=== PATIENT | female | born 2000 | race Caucasian/White ===

== ENCOUNTER 2019-03-09 14:33 | Emergency (ER) | payer OTHER ==
[~2019-03-09] VITALS: Ht 160 cm; Wt 90.7 kg
[~2019-03-09 14:33] MED LIST: IBUPROFEN 600600 M1 PO; NORCO 5-325 TA1 EACH PO; ZPAK PO
[2019-03-09 15:24] LABS: URINE BILIRUBIN NEGATIVE (Negative); URINE BLOOD 1+ (Negative); URINE CLARITY CLEAR; URINE COLOR YELLOW; URINE GLUCOSE-RANDOM* NEGATIVE (Negative); URINE KETONES NEGATIVE (Negative); URINE LEUKOCYTES-REFLEX TRACE (Negative); URINE NITRITE-REFLEX NEGATIVE (Negative); URINE PROTEIN (DIPSTICK) NEGATIVE (Negative); URINE SPECIFIC GRAVITY 1.025 (1.005-1.035); URINE UROBILINOGEN 0.2 E.U./dl (0.2-1.0)
[2019-03-09 15:35] LABS: BACTERIA-REFLEX 1-9 Few /HPF (None Seen); CRYSTALS None Seen /LPF (None Seen); HYALINE CASTS 0-3 Few /LPF (None Seen); MUCUS >6 Heavy strn/LPF (None Seen); SQUAMOUS >10 Many /LPF (0-3); URINE RBC 3-10 Few /HPF (0-2); URINE WBC-REFLEX 6-15 Few /HPF (0-5)
[2019-03-09] MEDS ORDERED: NORFLEX100 MG PO (15:40)
[2019-03-09] MEDS ORDERED: NAPROSYN500 MG PO (15:40)
[2019-03-09 16:13] VITALS: BP 116/70
== END 2019-03-09 16:20 | disposition home or self-care (01) ==
LOC: ER 14:33
PROVIDERS: Nurse Practitioner Family
DX: S39.012A Strain of muscle, fascia and tendon of lower back, initial encounter (principal); F90.9 Attention-deficit hyperactivity disorder, unspecified type; Z88.7 Allergy status to serum and vaccine; Z88.1 Allergy status to other antibiotic agents; X50.0XXA Overexertion from strenuous movement or load, initial encounter; Y92.89 Other specified places as the place of occurrence of the external cause; Y93.89 Activity, other specified; Y99.8 Other external cause status

== ENCOUNTER 2020-12-25 10:39 | Observation (INO) | payer OTHER ==
[~2020-12-25] VITALS: Ht 160 cm; Wt 101.6 kg
[~2020-12-25 10:39] MED LIST changes: +NAPROSYN500 MG PO; +NORFLEX100 MG PO
[2020-12-25 11:38] LABS: URINE BILIRUBIN NEGATIVE (Negative); URINE BLOOD 2+ (Negative); URINE CLARITY SL CLOUDY; URINE COLOR YELLOW; URINE GLUCOSE-RANDOM* NEGATIVE (Negative); URINE KETONES NEGATIVE (Negative); URINE NITRITE-REFLEX NEGATIVE (Negative); URINE PROTEIN (DIPSTICK) NEGATIVE (Negative); URINE SPECIFIC GRAVITY 1.025 (1.005-1.035); URINE UROBILINOGEN 0.2 E.U./dl (0.2-1.0)
[2020-12-25 11:39] LABS: URINE LEUKOCYTES-REFLEX 1+ (Negative)
[2020-12-25 11:53] LABS: CASTS None Seen /LPF (None Seen); MUCUS 4-6 Moderate strn/LPF (None Seen); SQUAMOUS >10 Many /LPF (0-3)
[2020-12-25 11:54] LABS: CRYSTALS None Seen /LPF (None Seen); URINE RBC 1-2 Rare /HPF (NONE SEEN); URINE WBC-REFLEX 0-5 Rare /HPF (0-5)
[2020-12-25 12:09] VITALS: BP 137/72
[2020-12-25 12:18] LABS: HEMATOCRIT 33.2 % (37.0-47.0); HEMOGLOBIN 10.4 gm/dL (12.0-15.0); MCH 21.9 pg (26.0-34.0); MCHC 31.5 g/dL (28.0-37.0); MCV 69.4 fL (80.0-100.0); PLATELET COUNT 524 thou/uL (150-400); RBC 4.78 mil/uL (4.20-5.00); RDW 18.3 % (10.5-14.5)
[2020-12-25] MEDS ORDERED: VYVANSE70 MG PO (12:18)
[2020-12-25 12:27] LABS: CALCIUM 8.9 mg/dL (8.5-10.1); CREATININE 0.8 mg/dL (0.6-1.0); POTASSIUM 4.1 mmol/L (3.5-5.1)
[2020-12-25 12:34] LABS: ALBUMIN 3.9 g/dL (3.4-5.0); TOTAL BILIRUBIN 0.5 mg/dL (0.2-1.0); TOTAL PROTEIN 8.3 g/dL (6.4-8.2)
[2020-12-25 12:38] LABS: ABSOLUTE NEUTROPHILS 22.6 thou/uL (1.4-8.2); ANISOCYTOSIS 1+; MICROCYTES 2+; PLATELET ESTIMATE NORMAL
[2020-12-25 15:42] VITALS: BP 122/63
[2020-12-25 16:24] VITALS: BP 150/63
--- NOTE | 2020-12-25 17:10 | NUR ---
20-year-old female presented to the ER with severe lower abdominal pain that started AM of 12-25-20. Patient states that she was feeling fine yesterday but woke up with severe umbilical pain with some radiation into her right lower quadrant. WBC [address] Hay for surgery to see and admit. Covid ID now in ED is negative with Moderna vaccination completed in August. Patient list Adamaris Diamond as person of contact at [phone]. Per ED assessment the patient remain A&O x4. CM will follow for discharge needs upon medical evaluation and plan of care has been established.
--- NOTE | 2020-12-25 19:18 | NUR ---
Pt transferred to unit from ED. Pt a&ox4. Pain controlled with tylenol and toradol. IVF and IV antibiotics infusing. NPO after midnight. Surgery scheduled for 9:15 am. Pt updated. Family at bedside. Call light within reach. Report given to nasim MANLEY.
[2020-12-25 19:27] VITALS: BP 101/59
--- NOTE | 2020-12-26 02:18 | NUR ---
ASSUME CARE OF PT AT SHIFT CHANGE. PT IS AOX4 AND LETS NEEDS BE KNOWN. PT IS UP AD NICHOLAS. ABX TREATMENT CONTINUED. PT REPORTED SOME ABD PAIN, SCHEDULED PAIN MEDS WERE ADEQUATE. PT PLACED NPO AT MN. PT DENIED NAUSEA OR SOA. PT WAS ABLE TO GET COMFORTABLE AND SLEEP PART OF THE SHIFT. VSS AND NO S/S OF ACUTE DISTRESS. WILL CONTINUE TO MONITOR.
[2020-12-26 02:51] LABS: HEMATOCRIT 27.9 % (37.0-47.0); HEMOGLOBIN 8.9 gm/dL (12.0-15.0); MCH 22.1 pg (26.0-34.0); MCHC 31.9 g/dL (28.0-37.0); RBC 4.05 mil/uL (4.20-5.00); RDW 18.1 % (10.5-14.5); WBC 12.2 thou/uL (4.0-11.0)
[2020-12-26 03:24] LABS: ALBUMIN 3.2 g/dL (3.4-5.0); CREATININE 0.5 mg/dL (0.6-1.0); PHOSPHORUS 3.5 mg/dL (2.5-4.9); POTASSIUM 3.7 mmol/L (3.5-5.1)
[2020-12-26 04:47] VITALS: BP 98/54
[2020-12-26 07:20] VITALS: BP 117/55
[2020-12-26] MEDS ORDERED: IBUPROFEN 200200 M1 PO (10:59)
[2020-12-26] MEDS ORDERED: OXYCODONE HCL10 MG PO (11:01)
[2020-12-26] MEDS ORDERED: TYLENOL325 MG PO (11:02)
[2020-12-26] MEDS ORDERED: COLACE 100 MG100 MG PO (11:02)
[2020-12-26] MEDS ORDERED: MIRALAX17 GM PO (11:02)
--- NOTE | 2020-12-26 11:12 | NUR ---
ASSUMED PT CARE THIS AM. PT IS ALERT & ORIENTED X4. PT IS UP AD NICHOLAS. PT HAS IV SITE ON R AC. PT IS ON ROOM AIR. NO C/O OF NAUSEA, VOMITING AND PAIN THIS AM. PT IS CURRENTLY HAVING SURGERY TODAY. PT BOYFRIEND WAS AT THE BEDSIDE. WILL CONTINUE TO MONITOR PT. FOLLOW POC.
[2020-12-26 11:55] VITALS: BP 111/66
[2020-12-26 14:51] VITALS: BP 111/66
--- NOTE | 2020-12-31 12:06 | PATH ---
[facility] [place] [address] PATHOLOGY RPT PROCEDURE Name: JIMIJOSEMICHAELSUSUKEON WATSONANSLEY Hinojosa Room #: 443-P [facility] Paddy Buckley#: [id number] Admission: 12/25/20 Date of : 89 Discharge: 12/26/20 Report #: [id number] Path Case #: [id number] [facility] Accession Number: [id number] . 01 Material submitted: . appendix - APPENDIX . 01 Clinical history: . LAPAROSCOPIC APPENDECTOMY APPENDICITIS . 02 Diagnosis: Appendix, appendectomy: - Marked acute appendicitis with acute serositis. (IUV/db; 12/28/2020) [facility] 12/28/2020 1746 Local . 02 Electronically signed: . Ashleigh Sheets MD, Pathologist NPI- [id number] . 01 Gross description: . Fixative: Formalin Labeled: Appendix Appendix length: 5.3 cm Appendix diameter: 1.0 cm Mesoappendix: 4.0 x 1.2 x 0.8 cm Proximal margin: Closed with a staple line Serosa: Gilgo-ortez and smooth with focal ortez-white purulent exudate Cut surface: The mid appendix displays a dilated area with red-brown hemorrhagic material measuring 1.6 cm in length Luminal diameter: Up to 0.5 cm Perforation: No Lesions/abnormalities: None identified A1 Proximal margin (inked black) and distal tip, bisected A2 Mid appendix ([facility]; 12/27/2020) SY/[facility] 12/27/2020 0847 Local . 02 Pathologist provided ICD-10: K35.20 . 02 CPT . 647272 Specimen Comment: A courtesy copy of this report has been sent to [phone] Specimen Comment: Report sent to Performed at: [address] [address] PATHOLOGY RPT PROCEDURE Name: SUSU ALMARAZ Room #: 443-P IBRAHIMA Buckley#: [id number] Admission: 12/25/20 Date of : [birth year] Discharge: 12/26/20 Report #: [id number] Path Case #: [id number] [address] [facility] [address], [place], [place] [id number] MD Keyshawn Kaur MD Phone: [phone] Performed at: [address] [place], [place] [id number] MD Ashleigh Sheets MD Phone: [phone]
== END 2020-12-26 15:10 | disposition home or self-care (01) ==
LOC: ER 10:39 → EROBS 14:25 → 4S 14:25
PROVIDERS: Student in an Organized Health Care Education/Training Program; ADMIT Surgery; ATTEND Surgery
DX: K35.30 Acute appendicitis with localized peritonitis, without perforation or gangrene (principal); Z20.822 Contact with and (suspected) exposure to COVID-19; F90.9 Attention-deficit hyperactivity disorder, unspecified type; R73.03 Prediabetes; Z79.899 Other long term (current) drug therapy
CPT/HCPCS: 50010; 50101; 50411; 50555; 50558; 50739; 52265; 53307; 53310; 53312; 54022; 54118; 56525; 56526; 58574; 58867; 58868; 62110; 62900; 70005